=== PATIENT | female | born 1975 | race Caucasian/White ===

== ENCOUNTER 2019-07-15 15:32 | Emergency (ER) | payer BC, OTHER ==
--- NOTE | 2019-07-15 16:10 | ER Document Report ---
ED Respiratory Problem - General Chief Complaint: Shortness Of Breath Stated Complaint: SHORTNSS OF BREATH Time Seen by Provider: 07/15/19 16:02 Primary Care Provider: RICHELLE WOODS MD [EMERITUS] - Follow up as needed Notes: CHIEF COMPLAINT: Shortness of breath for 1 month HPI: 44-year-old female who is otherwise healthy presenting to the emergency department for shortness of breath for 1 month. Patient states it started as a mild sore throat for 3 days, developed into shortness of breath and chest pressure and discomfort that lasted for several days. Patient states that she has not had a fever with this. She reports a daily constant burning discomfort over the chest especially when taking a deep breath in. States that she was prescribed an inhaler 3 weeks ago that she has been using multiple times daily with only minimal relief of the shortness of breath. Patient states that she did have a COVID test 2 weeks ago that was negative. Patient states she went back to [facility] 4 days ago and had a chest x-ray that was read as negative but she continues with the shortness of breath. She states she was placed on prednisone 4 days ago with only minimal improvement in her symptoms. Patient denies use of oral control. States she has not had recent travel or prolonged immobilization. She reports no cardiac history. ROS: See HPI - all other systems were reviewed and are otherwise negative Constitutional: no fever Eyes: no drainage, no blurred vision ENT: no runny nose, no sore throat Cardiovascular: + chest pain Resp: + SOB, no cough GI: no vomiting, no diarrhea, no abdominal pain : no dysuria Integumentary: no rash Allergy: no hives Musculoskeletal: no extremity pain or swelling Neurological: no numbness/tingling, no weakness MEDICATIONS: I agree with the patient medications as charted by the RN. ALLERGIES: I agree with the allergies as charted by the RN. PAST MEDICAL HISTORY/PAST SURGICAL HISTORY: Reviewed and agree as charted by RN. SOCIAL HISTORY: Reviewed and agree as charted by RN. FAMILY HISTORY: No significant familial comorbid conditions directly related to patient complaint EXAM: Reviewed vital signs as charted by RN. CONSTITUTIONAL: Alert and oriented and responds appropriately to questions. Well-appearing; well-nourished, mild distress secondary to difficulty breathing HEAD: Normocephalic; atraumatic EYES: PERRL; Conjunctivae clear, sclerae non-icteric ENT: normal nose; no rhinorrhea; moist mucous membranes; pharynx without lesions noted, no uvula edema or deviation, no tonsillar hypertrophy, phonation normal NECK: Supple without meningismus; non-tender; no cervical lymphadenopathy, no masses CARD: RRR; no murmurs, no clicks, no rubs, no gallops; symmetric distal pulses RESP: Normal chest excursion without splinting or tachypnea; breath sounds clear and equal bilaterally; no wheezes, no rhonchi, no rales, pulse oximetry 98% on room air not hypoxic. Patient does appear to be mildly dyspneic with speaking ABD/GI: Normal bowel sounds; non-distended; soft, non-tender, no rebound, no guarding; no palpable organomegaly or masses. BACK: The back appears normal and is non-tender to palpation, there is no CVA tenderness EXT: Normal ROM in all joints; non-tender to palpation; no cyanosis, no effusions, no edema SKIN: Normal color for age and race; warm; dry; good turgor; no acute lesions noted NEURO: Moves all extremities equally; Motor and sensory function intact PSYCH: The patient's mood and manner are appropriate. Grooming and personal hygiene are appropriate. MDM: 44-year-old otherwise healthy female with 1 month of pleuritic dyspnea. Has been on an inhaler, steroids, had a negative chest x-ray per the patient. Still with symptoms. She is not hypoxic here. Her lung sounds are clear to auscultation. She is low risk for pulmonary embolus but given the continued symptoms she has been having will obtain CT of the chest to evaluate for PE. Will obtain screening cardiac labs on the patient, EKG. Past Medical History - Social History Smoking Status: Unknown if Ever Smoked Family History: Reviewed & Not Pertinent Physical Exam - Vital signs Vitals: Temp Pulse Resp BP Pulse Ox 98.3 F 99 20 148/84 H 98 07/15/19 16:03 07/15/19 16:03 07/15/19 16:03 07/15/19 16:03 07/15/19 16:03 Course - Re-evaluation Re-evalutation: 07/15/19 18:11 Patient's lab work was normal. Her troponin was negative. BNP was negative. EKG normal sinus rhythm. CTA of the chest did not show evidence of pulmonary embolus, pneumonia, other acute or alarming findings. I discussed this at length with the patient. Patient is upset that we do not have a definitive diagnosis for her. She is aware that we did not detect a mass or pneumonia or blood clot. She does have a primary care provider in [place] she is to call them tomorrow to discuss her findings and further follow-up. Perhaps patient requires pulmonary function testing this was discussed with her. I will give fernando Bolesadron here today, this may be inflammatory. I will prescribe her diclofenac to help with the discomfort in the chest wall. She will continue prednisone tomorrow. - Vital Signs Vital signs: Temp Pulse Resp BP Pulse Ox 98.3 F 99 20 148/84 H 98 07/15/19 16:03 07/15/19 16:03 07/15/19 16:03 07/15/19 16:03 07/15/19 17:04 - Laboratory Result Diagrams: 07/15/19 15:53 07/15/19 15:53 Laboratory results interpreted by me: 07/15/19 07/15/19 07/15/19 15:53 15:53 15:53 Plt Count 471 H Lymph % (Auto) 8.7 L [place] % (Auto) 2.3 L Absolute Neuts (auto) 8.5 H Seg Neutrophils % 88.7 H Glucose 152 H Total Protein 8.4 H Albumin 5.2 H Urine Ketones 20 H Urine Blood MODERATE H Ur Leukocyte Esterase SMALL H Urine Ascorbic Acid 40 H Discharge - Discharge Clinical Impression: Dyspnea and respiratory abnormalities Condition: Stable Disposition: HOME, SELF-CARE Instructions: Dyspnea, Nonspecific ([facility]) Additional Instructions: Your lab work today including cardiac lab work did not show acute findings. The CTA of your chest did not show evidence of a mass, blood clot, infiltrate or pneumonia. Your symptoms may be inflammatory in nature. Continue the prednisone, continue to use your albuterol inhaler every 4 hours. Take the Voltaren to help with discomfort. Call your primary care provider tomorrow to discuss your findings and symptoms. It is possible that you may need further evaluation that would include pulmonary function testing or referral to pulmonology. Prescriptions: Albuterol Sulfate [Proair HFA Inhalation Aerosol 8.5 gm MDI] 2 puff IH Q4H PRN #1 mdi PRN Reason: Diclofenac Sodium [Voltaren 50 Mg Tablet.Dr] 50 mg PO BID #20 tablet.dr Referrals: RICHELLE WOODS MD [EMERITUS] - Follow up as needed
[2019-07-15 16:41] LABS: ALBUMIN 5.2 g/dL (3.5-5.0); ALKALINE PHOSPHATASE 64 U/L (38-126); ANION GAP 11 (5-19); ASPARTATE AMINO TRANSFERASE 19 U/L (14-36); BLOOD UREA NITROGEN 9 mg/dL (7-20); CALCIUM 10.2 mg/dL (8.4-10.2); CARBON DIOXIDE 23 mmol/L (22-30); CHLORIDE 106 mmol/L (98-107); GLUCOSE 152 mg/dL (75-110); POTASSIUM 3.9 mmol/L (3.6-5.0); TOTAL PROTEIN 8.4 g/dL (6.3-8.2)
[2019-07-15 16:59] LABS: APPEARANCE,URINE SLIGHTLY-CLOUDY; BILIRUBIN,URINE NEGATIVE (NEGATIVE); COLOR,URINE YELLOW; GLUCOSE, URINE NEGATIVE (NEGATIVE); KETONES,URINE 20 mg/dL (NEGATIVE); LEUKOCYTE ESTERASE,URINE SMALL (NEGATIVE); NITRITE,URINE NEGATIVE (NEGATIVE); PROTEIN,URINE NEGATIVE (NEGATIVE); URINE SPECIFIC GRAVITY 1.009; UROBILINOGEN,URINE NEGATIVE mg/dL (<2.0)
[2019-07-15 17:03] LABS: ABSOLUTE LYMPHOCYTES (AUTO) 0.8 10^3/uL (0.5-4.7); ABSOLUTE MONOCYTES (AUTO) 0.2 10^3/uL (0.1-1.4); ABSOLUTE NEUT (AUTO) 8.5 10^3/uL (1.7-8.2); BASOPHILS % (AUTO) 0.3 % (0-2); HEMATOCRIT 41.3 % (36.0-47.0); HEMOGLOBIN 14.5 g/dL (12.0-15.5); LYMPHOCYTES % (AUTO) 8.7 % (13-45); MEAN CORPUSCULAR HEMOGLOBIN 31.2 pg (27.0-33.4); MEAN CORPUSCULAR HGB CONC 35.1 g/dL (32.0-36.0); MEAN CORPUSCULAR VOLUME 89 fl (80-97); MONOCYTES % (AUTO) 2.3 % (3-13); PLATELET COUNT 471 10^3/uL (150-450); RED BLOOD COUNT 4.65 10^6/uL (3.72-5.28); RED CELL DISTRIBUTION WIDTH 13.1 % (11.5-14.0); SEGMENTED NEUTROPHILS % (AUTO) 88.7 % (42-78); TOTAL CELLS COUNTED % (AUTO) 100 %; WHITE BLOOD COUNT 9.5 10^3/uL (4.0-10.5)
--- NOTE | 2019-07-15 17:51 | RADIOLOGY REPORT (SQ) ---
EXAM DESCRIPTION: CTA CHEST IMAGES COMPLETED DATE/TIME: 07/15/2019 5:33 pm REASON FOR STUDY: dyspnea COMPARISON: None. TECHNIQUE: CT scan of the chest performed using helical scanning technique with dynamic intravenous contrast injection. Images reviewed with lung, soft tissue and bone windows. Reconstructed coronal and sagittal MPR images reviewed. Additional 3 dimensional post-processing performed to develop Maximal Intensity Projection images (VA P). All images stored on PACS. All CT scanners at this facility use dose modulation, iterative reconstruction, and/or weight based d osing when appropriate to reduce radiation dose to as low as reasonably achievable (ALARA). [facility]: Dose Right [facility]: CareDose [facility]: Dose Right [facility]: Teradose 4D [facility]: Rumble CONTRAST TYPE AND DOSE: contrast/concentration: Isovue 350.00 mg/ml; Total Contrast Delivered: 54.0 ml; Total Saline Delivered: 68.3 ml Contrast bolus adequate for pulmonary arteries and aorta. RENAL FUNCTION: None required. The patient is less than 50 years old. RADIATION DOSE: CT Rad equipment meets quality standard of care and radiation dose reduction techniq ues were employed. CTDIvol: 5.6 - 10.2 mGy. DLP: 423 mGy-cm. . LIMITATIONS: None. FINDINGS: LUNGS AND PLEURA: No masses, infiltrates, or pneumothorax. No pleural effusions or pleura l calcifications. AORTA AND GREAT VESSELS: No aneurysm. Contrast bolus not optimized for the aorta. HEART: No pericardial effusion. No significant coronary artery calcifications. PULMONARY ARTERIES: No emboli visualized in the main pulmonary arteries or the segmental branches. HILAR AND MEDIASTINAL STRUCTURES: No identified masses or abnormal nodes. HARDWARE: None in the chest. UPPER ABDOMEN: No significant findings. Limited exam. THYROID AND OTHER SOFT TISSUES: No masses. No adenopathy. BONES: No acute or significant finding. 3D MIPS: Confirm above findings. OTHER: No other significant finding. IMPRESSION: NORMAL CTA OF THE CHEST. NO PULMONARY EMBOLI. COMMENT: Quality ID # [id number]: Final reports with documentation of one or more dose reduction techniques (e.g., Automated exposure control, adjustment of the mA and/or kV according to patient size, use of iterative reconstruction technique) TECHNICAL DOCUMENTATION: JOB ID: [id number] 2010 [employer]- All Rights Reserved Reading location - IP/workstation name: [email or web address]
[2019-07-15] MEDS ORDERED: DEXAMETHASONE SOD PHOS INJ 10 MG/1 ML VIAL IV ONE (18:12)
[2019-07-15 19:09] VITALS: BP 123/73
--- NOTE | 2019-07-15 22:53 | EKG REPORT ---
SEVERITY:- ABNORMAL ECG - SINUS RHYTHM LEFT ATRIAL ABNORMALITY NONSPECIFIC T ABNORMALITIES, INFERIOR LEADS : Confirmed by: Kelechi Morgan 15-Jul-2019 22:52:13
== END 2019-07-15 19:08 | disposition home or self-care (01) ==
LOC: ER 15:32
DX: R06.02 Shortness of breath (principal); R07.89 Other chest pain; Z79.899 Other long term (current) drug therapy
CPT/HCPCS: 93005; 99285; 96374; 36415; 85025; 81025; 80053; 81001; 84484; 83880; 71275; 93010; J1100